=== PATIENT | female | born 1950 | race Two or more races ===

== ENCOUNTER 2017-04-23 08:01 | Outpatient (CLI) | payer OTHER | END 2017-04-23 09:00 | disposition home or self-care (01) | LOC: NUCLEAR 08:01 | DX: C18.2 Malignant neoplasm of ascending colon (principal); Z85.09 Personal history of malignant neoplasm of other digestive organs; D51.3 Other dietary vitamin B12 deficiency anemia; E03.8 Other specified hypothyroidism; Q23.8 Other congenital malformations of aortic and mitral valves; Q23.1 Congenital insufficiency of aortic valve; E78.2 Mixed hyperlipidemia; I10 Essential (primary) hypertension; R97.0 Elevated carcinoembryonic antigen [CEA]; K52.9 Noninfective gastroenteritis and colitis, unspecified | CPT/HCPCS: 78227; A9537; J2805 ==

== ENCOUNTER 2017-09-23 08:54 | Outpatient (CLI) | payer OTHER | END 2017-09-23 08:58 | disposition home or self-care (01) | LOC: RX STUDY 08:54 | DX: R10.9 Unspecified abdominal pain (principal) ==

== ENCOUNTER → 2018-07-22 | Outpatient (CLI) | payer OTHER | END | disposition home or self-care (01) | LOC: MAMO-SONO 10:01 | DX: Z12.31 Encounter for screening mammogram for malignant neoplasm of breast (principal); Z87.898 Personal history of other specified conditions; Z85.09 Personal history of malignant neoplasm of other digestive organs; D51.3 Other dietary vitamin B12 deficiency anemia; E03.8 Other specified hypothyroidism; Q23.8 Other congenital malformations of aortic and mitral valves; Q23.1 Congenital insufficiency of aortic valve; E78.2 Mixed hyperlipidemia; I10 Essential (primary) hypertension; R97.0 Elevated carcinoembryonic antigen [CEA]; R33.8 Other retention of urine; K82.8 Other specified diseases of gallbladder ==

== ENCOUNTER 2019-01-28 09:00 | Outpatient (CLI) | payer OTHER | END 2019-01-28 10:00 | disposition home or self-care (01) | LOC: NUCLEAR 09:00 | DX: C18.2 Malignant neoplasm of ascending colon (principal) | CPT/HCPCS: 78816; A9552 ==

== ENCOUNTER 2019-04-23 14:43 | Outpatient (CLI) | payer OTHER | END 2019-04-23 14:47 | disposition home or self-care (01) | LOC: LAB 14:43 | DX: N20.0 Calculus of kidney (principal) ==

== ENCOUNTER → 2019-04-24 | Outpatient (CLI) | payer OTHER | END | disposition home or self-care (01) | LOC: TOM 08:23 | DX: C18.2 Malignant neoplasm of ascending colon (principal); Z85.09 Personal history of malignant neoplasm of other digestive organs; D51.3 Other dietary vitamin B12 deficiency anemia; E03.8 Other specified hypothyroidism; Q23.8 Other congenital malformations of aortic and mitral valves; Q23.1 Congenital insufficiency of aortic valve; E78.2 Mixed hyperlipidemia; I10 Essential (primary) hypertension; R97.0 Elevated carcinoembryonic antigen [CEA]; K82.8 Other specified diseases of gallbladder | CPT/HCPCS: 71260; Q9965 ==

== ENCOUNTER 2020-05-25 09:11 | Outpatient (CLI) | payer OTHER | END 2020-05-25 09:14 | disposition home or self-care (01) | LOC: RX STUDY 09:11 | PROVIDERS: ATTEND Internal Medicine Gastroenterology | DX: R13.19 Other dysphagia (principal) ==

== ENCOUNTER 2020-06-06 13:52 | Outpatient (CLI) | payer OTHER | END 2020-06-06 14:13 | disposition home or self-care (01) | LOC: TOM 13:52 | PROVIDERS: ATTEND Internal Medicine Pulmonary Disease | DX: J98.11 Atelectasis (principal); Z77.22 Contact with and (suspected) exposure to environmental tobacco smoke (acute) (chronic); C18.8 Malignant neoplasm of overlapping sites of colon ==

== ENCOUNTER 2020-07-26 11:21 | Outpatient (CLI) | payer OTHER | END 2020-07-26 11:32 | disposition home or self-care (01) | LOC: MAMO-SONO 11:21 | PROVIDERS: ATTEND Internal Medicine Hematology & Oncology | DX: N64.59 Other signs and symptoms in breast (principal); N63.0 Unspecified lump in unspecified breast; Z12.31 Encounter for screening mammogram for malignant neoplasm of breast; C18.2 Malignant neoplasm of ascending colon; Z85.09 Personal history of malignant neoplasm of other digestive organs; D51.3 Other dietary vitamin B12 deficiency anemia; E03.8 Other specified hypothyroidism; Q23.8 Other congenital malformations of aortic and mitral valves; Q23.1 Congenital insufficiency of aortic valve; E78.2 Mixed hyperlipidemia; I10 Essential (primary) hypertension; R97.0 Elevated carcinoembryonic antigen [CEA]; K82.8 Other specified diseases of gallbladder ==

== ENCOUNTER 2021-10-19 08:34 | Outpatient (CLI) | payer OTHER | END 2021-10-19 08:35 | disposition home or self-care (01) | LOC: LAB 08:34 | PROVIDERS: ATTEND Radiology Diagnostic Radiology | DX: R51.9 Headache, unspecified (principal) ==

== ENCOUNTER 2021-10-20 09:57 | Outpatient (CLI) | payer OTHER | END 2021-10-20 10:07 | disposition home or self-care (01) | LOC: MRI 09:57 | PROVIDERS: ATTEND Internal Medicine Cardiovascular Disease | DX: R51.9 Headache, unspecified (principal); R41.2 Retrograde amnesia | CPT/HCPCS: 70553; Q9965; 70552 ==

== ENCOUNTER 2022-02-23 13:03 | Outpatient (CLI) | payer OTHER | END 2022-02-23 13:08 | disposition home or self-care (01) | LOC: MAMO-SONO 13:03 | PROVIDERS: ATTEND Internal Medicine Hematology & Oncology | DX: N63.0 Unspecified lump in unspecified breast (principal); N64.4 Mastodynia; Z12.31 Encounter for screening mammogram for malignant neoplasm of breast ==

== ENCOUNTER 2023-05-23 12:09 | Outpatient (CLI) | payer OTHER | END 2023-05-23 12:10 | disposition home or self-care (01) | LOC: MAMO-SONO 12:09 | PROVIDERS: ATTEND Internal Medicine Hematology & Oncology | DX: C18.2 Malignant neoplasm of ascending colon (principal); Z85.09 Personal history of malignant neoplasm of other digestive organs; D51.3 Other dietary vitamin B12 deficiency anemia; E03.8 Other specified hypothyroidism; Q23.8 Other congenital malformations of aortic and mitral valves; Q23.1 Congenital insufficiency of aortic valve; E78.2 Mixed hyperlipidemia; I10 Essential (primary) hypertension; R97.0 Elevated carcinoembryonic antigen [CEA]; K82.9 Disease of gallbladder, unspecified; Z12.31 Encounter for screening mammogram for malignant neoplasm of breast ==

== ENCOUNTER → 2024-08-05 10:01 | Outpatient (CLI) | payer OTHER | END | disposition home or self-care (01) | LOC: NUCLEAR 10:00 | PROVIDERS: ATTEND Internal Medicine Hematology & Oncology | DX: I73.9 Peripheral vascular disease, unspecified (principal); I87.2 Venous insufficiency (chronic) (peripheral) ==

== ENCOUNTER 2024-08-05 10:54 | Outpatient (CLI) | payer OTHER | END 2024-08-05 10:58 | disposition home or self-care (01) | LOC: MAMO-SONO 10:54 | PROVIDERS: ATTEND Internal Medicine Hematology & Oncology | DX: N63.0 Unspecified lump in unspecified breast (principal); N64.4 Mastodynia; C18.2 Malignant neoplasm of ascending colon; Z85.09 Personal history of malignant neoplasm of other digestive organs; D51.3 Other dietary vitamin B12 deficiency anemia; E03.8 Other specified hypothyroidism; Q23.1 Congenital insufficiency of aortic valve; E78.2 Mixed hyperlipidemia; I10 Essential (primary) hypertension; R97.0 Elevated carcinoembryonic antigen [CEA]; K82.9 Disease of gallbladder, unspecified; Z12.31 Encounter for screening mammogram for malignant neoplasm of breast ==

== ENCOUNTER 2024-08-06 09:09 | Outpatient (CLI) | payer OTHER | END 2024-08-06 09:11 | disposition home or self-care (01) | LOC: NUCLEAR 09:09 | PROVIDERS: ATTEND Internal Medicine Hematology & Oncology | DX: I70.213 Atherosclerosis of native arteries of extremities with intermittent claudication, bilateral legs (principal) ==

== ENCOUNTER 2024-12-22 07:33 | Outpatient (CLI) | payer OTHER | END 2024-12-22 07:34 | disposition home or self-care (01) | LOC: NUCLEAR 07:33 | PROVIDERS: ATTEND Internal Medicine | DX: I20.9 Angina pectoris, unspecified (principal) | CPT/HCPCS: 78452; 93017; A9500 ==